=== PATIENT | female | born 1945 | race Caucasian/White ===

== ENCOUNTER → 2016-12-06 | Outpatient (CLI) | payer OTHER | LOC: RAD 12-02 01:51 | DX: Z12.31 Encounter for screening mammogram for malignant neoplasm of breast (principal) ==

== ENCOUNTER → 2018-06-26 | Outpatient (CLI) | payer OTHER | LOC: RAD 01:09 | DX: Z12.31 Encounter for screening mammogram for malignant neoplasm of breast (principal) ==

== ENCOUNTER → 2018-06-27 | Outpatient (CLI) | payer OTHER | LOC: RAD 13:53 | DX: R92.1 Mammographic calcification found on diagnostic imaging of breast (principal) ==

== ENCOUNTER 2019-11-27 20:35 | Inpatient (IN) | payer OTHER ==
[~2019-11-27] VITALS: Ht 167.6 cm; Wt 72.8 kg
[2019-11-27 20:36] VITALS: BP 98/58
[2019-11-27] MEDS ORDERED: DEPAKOTE ER500 M1 PO (20:51)
[2019-11-27] MEDS ORDERED: NORVASC 2.5 MG2.5 M1 PO (20:51)
[2019-11-27] MEDS ORDERED: CYMBALTA60 MG PO (20:53)
[2019-11-27] MEDS ORDERED: ARICEPT10 M1 PO (20:53)
[2019-11-27] MEDS ORDERED: FENOFIBRATE150 MG PO (20:54)
[2019-11-27] MEDS ORDERED: GLUCOSA-CHOND-1 EACH PO (20:55)
[2019-11-27] MEDS ORDERED: LEVOCARNITI100 MG/ML PO (20:56)
[2019-11-27] MEDS ORDERED: LISINOPRIL2.5 MG PO (20:57)
[2019-11-27] MEDS ORDERED: MELATONIN5 M4 PO (20:58)
[2019-11-27] MEDS ORDERED: METFORMIN HCL500 M3 PO (20:58)
[2019-11-27] MEDS ORDERED: FISH OIL 1,0001 EAC9 PO (20:59)
[2019-11-27] MEDS ORDERED: SUPER THERAVIT1 EACH PO (20:59)
[2019-11-27] MEDS ORDERED: RISPERDAL0.5 MG PO (21:00)
[2019-11-27] MEDS ORDERED: ROSUVASTATIN CA10 MG PO (21:01)
[2019-11-27] MEDS ORDERED: OLANZAPINE10 M1 IM (21:03)
[2019-11-27 21:07] LABS: ABSOLUTE NEUTROPHILS 4.9 thou/uL (1.4-8.2); EOSINOPHILS 1.9 % (0.0-3.0); HEMATOCRIT 37.9 % (37.0-47.0); HEMOGLOBIN 12.3 gm/dL (12.0-15.0); LYMPHOCYTES 25.6 % (24.0-44.0); MCH 27.2 pg (26.0-34.0); MCHC 32.5 g/dL (28.0-37.0); MCV 83.8 fL (80.0-100.0); MONOCYTES 7.1 % (1.0-8.0); PLATELET COUNT 310 thou/uL (150-400); POLYS 64.4 % (36.0-66.0); RBC 4.52 mil/uL (4.20-5.00); RDW 14.8 % (10.5-14.5); WBC 7.6 thou/uL (4.0-11.0)
[2019-11-27 21:16] LABS: CALCIUM 9.3 mg/dL (8.5-10.1); CREATININE 1.5 mg/dL (0.6-1.0)
[2019-11-27 21:23] LABS: ALBUMIN 3.4 g/dL (3.4-5.0); TOTAL BILIRUBIN 0.3 mg/dL (<0.1-1.0); TOTAL PROTEIN 6.9 g/dL (6.4-8.2)
[2019-11-27 21:54] LABS: URINE BILIRUBIN NEGATIVE (Negative); URINE BLOOD NEGATIVE (Negative); URINE CLARITY CLEAR; URINE COLOR YELLOW; URINE GLUCOSE-RANDOM* NEGATIVE (Negative); URINE KETONES TRACE (Negative); URINE LEUKOCYTES-REFLEX NEGATIVE (Negative); URINE NITRITE-REFLEX NEGATIVE (Negative); URINE PROTEIN (DIPSTICK) 2+ (Negative); URINE SPECIFIC GRAVITY >= 1.030 (1.005-1.035)
[2019-11-27] MEDS ORDERED: LOPERAMIDE2 MG PO (22:02)
[2019-11-27] MEDS ORDERED: ZYPREXA10 MG IM (22:06)
[2019-11-27 22:07] LABS: AMP/METHAMP Negative (Negative); BARBITURATES Negative (Negative); BENZODIAZEPINES Negative (Negative); COCAINE Negative (Negative); METHADONE Negative (Negative); OPIATES Negative (Negative); PCP Negative (Negative)
[2019-11-27 22:08] LABS: SQUAMOUS 0-3 Few /LPF (0-3)
[2019-11-27 22:09] LABS: BACTERIA-REFLEX 1-9 Few /HPF (None Seen); CASTS None Seen /LPF (None Seen); CRYSTALS None Seen /LPF (None Seen); URINE RBC None Seen /HPF (0-2); URINE WBC-REFLEX 0-5 Rare /HPF (0-5)
[2019-11-27 23:10] VITALS: BP 140/54
--- NOTE | 2019-11-28 00:40 | NUR ---
Patient arrived via gurney from [facility] ED with 2 daughters at side. Patient arrived to ED via EMS due to exit seeking behaviors, increased confusion and agitation from her [facility] apartment at [facility]. Patient was evaluated in ED by this nurse. Patient angry and agitated. Patient repeatedly demanding to go home. Patient alert and oriented to person only. While assessing current orientation, patient had a suspicious look on her face. Patient was given time to name current date, which she finally answered "I knew what it was this morning!". When asked current location, patient was quiet as if she was thinking then started to yell at her daughters "Are you going to help me or just let me look like an idiot?!" Patient denied pain or discomfort. Patient speaking loudly, verbally aggressive to daughters. States that her kids are just picking at her, pointing out all her faults, "they have faults too, ya know". Patient having disorganized speech, tangential thoughts. Blunted affect. Daughters stepped out of patient room at one point to speak with this nurse when patient attempted to leave room independently. Patient required re-direction to be assisted back to her room. Family reports that someone has been staying 1:1 with her during all hours to avoid her eloping at current apartment. Patient was provided IM Geodon for agitation while in ED. Patient denied SI/HI/AH/VH. Patient was able to go to bed and fall asleep without difficulty once arriving to the unit. Medication orders obtained from Dr. Drummond and Axel, ROTARY DRUM TANNER. Due to current GFR being 34, order obtained to d/c Metformin and start low dose insulin scale and ACHS blood sugars. Full code. Carb Controlled diet. Patient was living at home with her early October 2019. Patient was physically aggressive toward daughter, combative, throwing things. Increased confusion at night, wandering, stating her does not love her anymore. When asked about her daughters, patient stating "I'm sure they wish they weren't mine". Due to behaviors early October 2019, patient was sent to [facility] where she was admitted for 3.5 weeks and started on Depakote. Family states that it was not a psychiatric visit and was only medical. Family reports that patient was not able to reach a therapeutic level of Depkote due to having an increased Ammonia level. Patient has been evaluated by a neurologist at which family is not satisfied with. Reports that patient has not yet been "worked up" to obtain a diagnosis of Major Neurocognitive Disorder and was only diagnosed with Mild Neurocognitive Disorder Dementia "a while back". Family hopes for patient behaviors to be controlled and she can return back to [facility] apartment or even home with . Appears that Risperdal was started 11/26/19. Verbal consent obtained from [place], Sony Greene, over the phone. Visiting hours and security code provided. Also requested for him to bring 2 outfits for patient to wear.
--- NOTE | 2019-11-28 08:16 | EKG ---
[facility] [place] [address] ELECTROCARDIOGRAM REPORT Name: STEPHANY BERNAL Room #: [facility]- ADM IN M.R.#: [id number] Admission: 11/27/19 Attend Phys: Marco Drummond DO Discharge: Date of : 41 Report #: [id number] THIS REPORT FOR: cc: Steve Zuniga MD, Nelopher MD Couchonnal,Jose Salguero MD ~ THIS REPORT FOR: //name// [facility] ED Test Date: 2019-11-27 Test Time: 21:07:05 Pat Name: STEPHANY BERNAL Department: Room: [facility] Gender: F Web Manager: NO : 1945 Requested By: Shanna Belcher Order Number: [id number] MD: Jose Goldman Measurements Intervals Stanton Rate: 83 P: 42 WI: 139 QRS: -29 QRSD: 85 T: 45 QT: 382 QTc: 449 Interpretive Statements Pacemaker spikes or artifacts Sinus rhythm Borderline left axis deviation Abnormal R-wave progression, late transition No previous ECG available for comparison Electronically Signed On 11-28-2019 8:15:08 CDT by Jose Goldman [email or web address] <ELECTRONICALLY SIGNED> By: Jose Goldman MD 11/28/19814 06 06 Jose Goldman MD /EPI
[2019-11-28 13:01] VITALS: BP 137/68
--- NOTE | 2019-11-28 13:09 | NUR ---
ASSUMED CARE AT 0700 THIS MORNING. PT. HAS REMAINED PLEASANT WITH TALKING TO STAFF. WHEN 2 OF HER DAUGHTERS WERE HERE AT 1045, SHE WAS VERY ANGRY WITH THEM TELLING THEM TO LEAVE AND NOT COME BACK. SHE WAS IRITABLE AND ANGRY WITH HER CHILDREN. AFTER THEY LEFT, SHE RETURNED TO HER PLEASANT NATURE. SHE TRIED TO TELL DR. SMALL SHE NEEDED TO LEAVE HERE TOMORROW. WHEN SHE WAS INFORMED THIS MAY NOT OCCUR, SHE LOOKED VERY SAD AND STATED, "DON'T SAY THAT!" SHE HAS BEEN AT THE OFFICE WINDOW FREQUENTLY WANTING THINGS. SHE DID CALL HER THAT IS HAVING EYE SURGERY THIS MORNING BEFORE HIS SURGERY. SHE SEEMED CONTENT THAT SHE COULD TALK TO HIM AT THAT TIME. SHE TOOK HER MEDICATIONS WITHOUT DIFFICULTY.
[2019-11-28 13:14] VITALS: BP 137/68
--- NOTE | 2019-11-28 13:25 | NUR ---
Sw called and spoke with pt's spouse/DPOA Sony and he reported that pt has inccreased agitation and anggression. ALEXANDRE set up family meeting for 11/29 at 1145 am. Sw completed intake assessment and TP. SW then met wiht pt and she was weepy because her spouse was having eye surgery and couldnt be there. SW attempted to explore her insight in why she was inpt psych, and she think it's because she gets angry at her spouse - but he is always " pushing my buttons". Sw asked if it had anything to do wiht her memory, and she stated that her says she forgets things , " but i know i don't and it's crazy making.". ALEXANDRE encoaurged pt tp particpate in groups.
[2019-11-28 19:39] VITALS: BP 127/60
[2019-11-28 21:40] VITALS: BP 127/60
--- NOTE | 2019-11-29 04:48 | NUR ---
PATIENT HAS BEEN UP PACING THE HALLS EARLY IN THE EVENING AND THEN STANDING OUTSIDE THE NURSES STATION ASKING REPETITIVE QUESTIONS OVER AND OVER AGAIN IF THE FIRST TIME ASKED. SHE ASKED LATE IN EVENING FOR A CELL PHONE TO CALL HER . WHEN TOLD IT WAS LATE AND SHE WOULD HAVE TO WAIT TILL MORNING. SHE WOULD SAY OK, THAT'S FINE AND WALK ON TO THE NEXT NURSE, THE NEXT PATIENT AND BACK TO THE ORIGINAL NURSE. SHE ALSO DID THIS WITH THE QUESTION OF "I AM GOING HOME IN THE MORNING, ARENT I?" WHEN GIVEN AN ANSWER THAT THE DR WOULD NEED TO TALK WITH HER IN THE MORNING BEFORE HE COULD D/C HER IF HE PLANNED ON HER GOING HOME BUT THIS NURSE HAS NOT SEEN WHAT HIS PLAN IS. SHE CONTINUED TO ASK OTHERS AND AGITATION INCREASED. PATIENT REFUSED TO TAKE HER HS MEDS. SHE TOLD ONE FEMALE UTILITY WORKER PRODUCTION THAT SHE LIKED HER "BOOBS". SHE BECAME BELIGERANT AND LOUD STATING SHE DIDN'T NEED TO BE HERE AND SHE WAS GOING TO [facility] AND THE STAFF IF WE DIDN'T LET HER GO HOME IN THE MORNING. CALLED REYNALDO MCCRACKEN NP AND ORDER GIVEN FOR GEODON 10MG IM ONE TIME. CALLED BECAUSE SHE WAS PACING, ARGUING, SWINGING ARMS, AND THREATNING TO HIT. SHE WAS PARANOID AND DIDN'T WANT STAFF FOLLOWING HER TO HER ROOM TO GIVE THE SHOT. SHE THOUGHT PEOPLE WERE TALKING BEHIND HER BACK. ASSISTED PATIENT WITH 2 NURSE STAFF WALKING IN FRONT OF HER TO HER ROOM. SHE DID NOT WANT MALE NURSE OR BUCKLE STAPLER IN ROOM FOR SHOT BUT ALLOWED FEMALE OFFICER TO BE PRESENT. SHE FINALLY CALMED FOR THE SHOT SAYING SHE WOULD ONLY TAKE THE SHOT FROM ME BECAUSE SHE TRUSTS ME. SHOT GIVEN IN RIGHT HIP. PATIENT WENT TO BED WITHIN HALF AN HOUR OF PACING IN ROOM. PATIENT HAS BEEN SLEEPING SINCE 2300. CONTINUED ROUNDING TO ASSESS HER SAFETY AND PHYSICAL ASSESSMENT. CONTINUE TO MONITOR. BED IN LOW POSITION.
[2019-11-29 08:59] VITALS: BP 102/49; BP 142/65
[2019-11-29 13:48] VITALS: BP 142/65
--- NOTE | 2019-11-29 14:10 | NUR ---
ASSUMED CARE AT 0700 THIS MORNING. PT. UP, DRESSED AND ON THE UNIT FOR MEALS. TOOK HER MORNING MEDICATIONS WITHOUT DIFFICULTIES. HAS BEEN INTERACTING WITH [employer]. ATTENDED GROUPS.
[2019-11-29 19:51] VITALS: BP 149/67
--- NOTE | 2019-11-30 04:04 | NUR ---
Assumed care of pt @ 1900. Pt calm, cooperative et pleasant this shift. Took medications whole without difficulty. Ambulates ad lizz with steady gait. Socialized with peers in dayroom until HS. VSWNL. Health assessment with no abnormalities noted at present time. Denies SI/HI at present time. Currently resting in bed with eyes closed. Will continue to monitor per protocol.
[2019-11-30 07:15] VITALS: BP 153/70
[2019-11-30 11:58] VITALS: BP 153/70
--- NOTE | 2019-11-30 14:44 | NUR ---
Todd met with pt's 5 daughters and spouse in what ended up being a 2 hour family meeting. Sw provided support and education regarding placements, dementia, SBH and family concerns. Sw provided guidance about AL memory care and the need for structure and safety. 4 daughters were open to suggestions but the eldest daughter was hostile and rude to SW and her sisters. Pt was not inlcuded in the meeting as this would not have been therapeutic. Sw reinforced the severity of the pt'sbehaviors and cognitive impairment and that she would be having neuropsych testing next week. TODD asked for 3 placement options to be provided by Tuesday so the referrals can be submitted. Family was grateful for the time and effort the [facility] was providing their mom and family. TODD relayed this to Dr Sigala and provided the alternate DPOA Natasha Chinchilla's phone number [phone] as the DPOA spouse is ADAIR.
--- NOTE | 2019-11-30 15:57 | NUR ---
1545 RESUMMED CARE FROM OVERNIGHT SHIFT, PATIENT IN DAY ROOM QUIET CALM. PATIENT ATE BREAKFAST TOOK MEDICATION WITHOUT INCIDENCE, PATIENT DENIES AI/HI/AH/VH AT PRESENT. PATIENT LUNGS CLEAR ABDOMEN SOFT ROUND BOWEL SOUNDS PRESENT 4 QUADRANTS. DURING VISITING HOURS PATIENT ASKED DAUGHTER TO LEAVE, CUSSED OUT . AROUND 1600 PATIENT COMES TO NURSES STATION TO ASK IF SOMEONE WAS VISITING HER AGAIN TODAY. I EXPLAINED TO PATIENT YOU MAY NOT HAVE VISITORS DUE TO WHAT SHE DID IN EARLIER VISIT. PATIENT STATES SHE IS ANXIOUS AND NOW WANTS TO GO HOME. WILL CONTINUE TO MONITOR PATIENT FOR SAFETY AND BEHAVIORS.
[2019-11-30 20:23] VITALS: BP 122/63
--- NOTE | 2019-12-01 04:40 | NUR ---
Assumed care of pt @ 1900. Pt calm et cooperative with pleasant demeanor this shift. Took medications whole without difficulty. Ambulates the halls ad lizz with steady gait. Socialized with peers et staff in dayroom until HS. Denies SI/HI at present time. No behaviors noted. VSWNL. Health assessment with no abnormalities noted at present time. Currently resting in bed with eyes closed. Will continue to monitor per protocol.
[2019-12-01 08:27] VITALS: BP 128/55
--- NOTE | 2019-12-01 17:54 | NUR ---
AAOX3. CONTINUALLY WANTS TO LEAVE AND VOICES CONCERN ABOUT HER WANTING TO LEAVE HER. SHE GETS TEARY AT TIMES AND OTHER TIMES ANGRY THAT SHE IS HERE. AMBULATES WITH SLOW STEADY GAIT. TALKS ABOUT CHILDREN BUT HAS TROBLE REMEMBERING THIER NAMES AND IF THEY HAVE CHILDREN OF THEIR OWN. GOOD APPETITE FOR MEALS. ATE ALL MEALS IN DINNIN ROOM AND ATTENDED GROUPS.
[2019-12-01 20:38] VITALS: BP 100/58
--- NOTE | 2019-12-01 22:48 | NUR ---
Assumed care of patient this pm shift. Patient in good spirits sitting in the mileu watching tv and talking with staff and peers. Patient is dressed appropriately with clean clothes. Patient is calm and cooperative. Patient denies hi/si. Patient takes medications whole. Patient ambulates without assistance. Patients assessment shows clear breath sounds, active bowel sounds, and s1 s2 heard with auscultation. Patient is in bed sleeping now. We will continue to monitor.
[2019-12-02 08:18] VITALS: BP 175/84
[2019-12-02 10:35] VITALS: BP 175/84
--- NOTE | 2019-12-02 11:23 | NUR ---
1040 RESUMMED CARE FROM OVERNIGHT SHIFT THIS AM, PATIENT SITTING IN DAY ROOM WAITING FOR BREAKFAST. PATIENT CALM COOERATIVE LUNGS CLEAR ABDOMEN SOFT AND ROUND BOWEL SOUNDS PRESENT. PATIENTS BS 143 AND SHE RECEIVED 3 UNITS OF INSULIN. PATIENT DENIES SI/HI/AH/VH AT PRESENT HER AFFECT IS BRIGHTER. PATIENT PARTICIPATED IN GROUPS WILL CONTINUE TO MONITOR PATIENT FOR SAFETY AND BEHAVIORS.
[2019-12-02 13:53] LABS: URINE BILIRUBIN NEGATIVE (Negative); URINE BLOOD NEGATIVE (Negative); URINE CLARITY CLEAR; URINE COLOR YELLOW; URINE GLUCOSE-RANDOM* NEGATIVE (Negative); URINE KETONES TRACE (Negative); URINE LEUKOCYTES NEGATIVE (Negative); URINE NITRITE NEGATIVE (Negative); URINE PROTEIN (DIPSTICK) 2+ (Negative); URINE SPECIFIC GRAVITY >= 1.030 (1.005-1.035); URINE UROBILINOGEN 0.2 E.U./dl (0.2-1.0)
[2019-12-02 14:00] LABS: CASTS None Seen /LPF (None Seen); SQUAMOUS 0-3 Few /LPF (0-3)
[2019-12-02 14:01] LABS: BACTERIA 1-9 Few /HPF (None Seen); CRYSTALS None Seen /LPF (None Seen); URINE RBC None Seen /HPF (0-2); URINE WBC 0-5 Rare /HPF (0-5)
[2019-12-02 19:27] VITALS: BP 127/77
--- NOTE | 2019-12-02 23:48 | NUR ---
Assumed care of patient this pm shift. Patient in good spirits. Patient is calm and cooperative. Patient states that she is looking forward to going home. Patient denies pain. Patient denies hi/si. Patient ambulatory. Patient is dressed neatly. Patient took medications whole this evening after rn reviewed what each medication was for. Patients assessment shows clear breath sounds, active bowel sounds, and s1 s2 heard with auscultation. We will continue to monitor.
[2019-12-03 08:43] VITALS: BP 112/47
--- NOTE | 2019-12-03 09:18 | NUR ---
SW completed chart review and pt is making small gains but is clearly demented . pt is pending neuro testing . Pt's family would like her back in the AL but are still looking for a AL or LTC with memory care. They are expected to provide at least referrals to send today.
[2019-12-03 10:15] VITALS: BP 112/47
--- NOTE | 2019-12-03 12:24 | NUR ---
1210 RESUMMED CARE FROM OVERNIGHT SHIFT THIS AM, PATIENT UP IN DAYROOM CONVERSING WITH OTHER FEMALE PATIENTS. PATIENT ATE BREAKFAST TOOK MEDICATION WITHOUT INCIDENCE. PATIENT DENIES SI/HI/AH/VH AT PRESENT, PATIENTS ABDOMEN SOFT ROUND BOWEL SOUNDS PRESENT. LUNGS CLEAR PATIENT CALM COOPERATIVE DID TALK TO ME ABOUT HER NOT DOING THINGS WITH HER. SHE STATES HER DAUGHTER IS A GOOD RESOURCE FOR HER. PATIENT WANTS TO WORK ON COPING AND GETTING INVOLVED WITH DOING MORE WITH HER LIFE. WILL CONTINUE TO MONITOR PATIENT FOR SAFETY AND BEHAVIORS.
[2019-12-03 19:25] VITALS: BP 133/55
--- NOTE | 2019-12-04 03:09 | NUR ---
Assumed care of pt @ 1900. Pt calm et cooperative this shift. Pt confused as to where her room is as she was moved today. Pt continue to ask staff where her room is after being told et shown several times throughout the shift. Took medications whole without difficulty. Ambulates the halls ad lizz with steady gait. VSWNL. Health assessment with no abnormalities noted at present time. Socialized with peers in dayrrom until HS. Currently resting in bed with eyes closed. Will continue to monitor per protocol.
[2019-12-04 07:48] VITALS: BP 149/59
--- NOTE | 2019-12-04 10:16 | NUR ---
ANXIOUS FACIAL EXPRESSION WHEN CONVERSING WITH THIS NURSE REGARDING TREATMENT AND HOSPITAL STAY-STATES SHE DOES NOT KNOW WHY SHE IS HERE,WHAT FAMILY MEMBERS ARE "RESPONSIBLE FOR PUTTING ME HERE" BECOMES INCREASINGLY ANXIOUS WHEN SPEAKING ABOUT THIS AND EXPRESSES FEELING LIKE FAMILY IS "OUT TO GET ME I GUESS-I THOUGHT THEY LOVED ME" GAIT STEADY WITHOUT ASSISITVE DEVICES. DENIES SI/SH/HI
--- NOTE | 2019-12-04 11:50 | NUR ---
ALEXANDRE spoke at length with pt's daughter Natasha about d/c plans, she reported that they are not able to look at any AL due to COvid 19 and do not want ot send her somehwere they have not seen. SW suggested that they pick a [place] memory care for placement that might be temporary until the ban on visits is lifted, as staying in the [facility] is non therapuetic for long periods of time. Natasha is still hesitant about picking another pale for this pt, and still wnats [facility] to work. SW advised her that was not as safe as Memory care [place]. Sw offered to send updates to [facility] and let them decide if they can take her back as she is. Natasha stated that she will call this pm or tomorrow am witha decision or placees to send referrals to.
--- NOTE | 2019-12-04 16:05 | NUR ---
ALEXANDRE met with Dr Sigala and is was decided that pt will d/c back to her AL. Alexandre then called Natasha and reported this. Pt will likely d/c TR Komal Kaur stated that Dr Zuniga will be managing this pts' medications . ALEXANDRE requested that Natasha make an appt wiht a psych Dr for later . Alexandre then called [facility] and spoke with nursing to confirm the d/c and faxed updates. family is satisfied with this outcome.
[2019-12-04 19:30] VITALS: BP 142/63
[2019-12-04 22:23] VITALS: BP 142/63
--- NOTE | 2019-12-05 05:59 | NUR ---
PATIENT WAS UP IN DINING ROOM TILL BEDTIME VISITING WITH ANOTHER FEMALE PT. SHE HAS BEEN CALM, REDIRECTABLE, AND REMEMBERING INSTRUCTIONS LONGER BEFORE ASKING AGAIN. SHE DID ASK APPROPRIATE QUESTIONS REGARDING HER MEDS AND INSULIN AT HS AND WANTED TO KNOW IF SHE WOULD HAVE HELP WITH WHAT TO TAKE WHEN SHE IS D/C'D. PATIENT WAS INDEPENDENT WITH SELF CARES AND WENT TO BED ON HER OWN WITHOUT DIRECTION OR HELP. DENIES PAIN. SLEPT THRU NIGHT.
[2019-12-05 08:54] VITALS: BP 136/55
[2019-12-05 11:51] VITALS: BP 136/55
--- NOTE | 2019-12-05 11:56 | NUR ---
PATIENT HAS BEEN UP AND OUT ON THE UNIT, LIKES TO WALK AROUND THE UNIT. PATIENT IS ALERT, FORGETFUL, AND INTERMITTENT CONFUSION NOTED, SHE REPEATS QUESTIONS. PATIENT TOOK ALL MORNING MEDICATIONS WHOLE WITHOUT DIFFICULTY. PATIENT IS EATING MEALS, AND DRINKING FLUID WELL. SHE DENIES SUICIDAL/HOMICIDAL IDEATION. PATIENT DENIES DEPRESSION/ANXIETY. MOOD IS ANXIOUS, AND WORRIED, WANTS TO GO HOME. AFFECT IS APPROPRIATE "I JUST WANT TO GO HOME I HAVEN'T SEEN MY IN A WHILE I DON'T EVEN KNOW IF I AM STILL MARRID TO HIM". PATIENT'S DAUGHTER CALLED AND WANTS STAFF TO REITERATE TO PATIENT THAT "SHE WILL BE DISCHARGING TO [facility], AND NOT GOING HOME, BECAUSE SHE THINKS SHE IS GOING HOME, HOME" NO AGITATION OR AGGRESSIVE BEHAVIOR NOTED. WILL CONTINUE TO REDIRECT, AND MONITOR FOR SAFETY.
--- NOTE | 2019-12-05 12:27 | NUR ---
Todd spoke with Natasha and she reproted that the neuropsych testing revealed a recomendation for AL and memeory care with 11/04 supervision. Now family confused and would like to speak with Dr Sigala. Todd sent this message to Dr Sigala. TODD is still encouarging memory care with medicaid and the family would like the referral sent to [facility]. Todd also provided inforamtion regarding d/c plans.
--- NOTE | 2019-12-05 14:37 | NUR ---
NANNETTE received an email requesting that the referal packet be sent to [facility] again, and to add the meds list. They also requested d/c orders and nannette educated them that these can be sent a few hours before d/c. Nannette sent the packet with confirmation of reciept to [phone] and [phone]. [facility] requested that this d/c happen on Tuesday so they can be ready for her.
--- NOTE | 2019-12-05 15:45 | NUR ---
Date of Admission: 11/27/19 Date of Activity Therapy Assessment: 11/30/19 Activity Goal: Increase engagement Initial Goal: 2 Group activities/day Weekly progress towards goal: Achieving current goals Group participation level: Full Behaviors observed: Patient participating in all groups. Periods of confusion observed- particularly in the afternoon. Patient is tearful at times, expressing doubt that her family loves her. Plan: No change towards goal
[2019-12-05 19:06] VITALS: BP 148/64
--- NOTE | 2019-12-05 21:18 | NUR ---
Assumed care on 12/04 @ 1900, up in day room sitting on sofa watching tv and socializing with peers. Cooperated with assessment and took meds whole. fsbs 179 @ 2100, 3 u insulin provided. Will continue to monitor.
[2019-12-06 00:22] VITALS: BP 148/64
--- NOTE | 2019-12-06 06:02 | NUR ---
slept 8.2 hours overnight
--- NOTE | 2019-12-06 09:18 | NUR ---
Assumed care of pt at 0700. Pt has a positive affect and is in a pleasant mood. Pt up, showered and seated in the dining for breakfast. Pt denies any pain or discomfort; also denies SI/HI and denies AH/VH. Pt given and tolerated medications without difficulty. Pts 7am blood sugar - 108 (no insulin given). Pts goal for the day is to find out information about discharge. Pt participated in group activities and interacts well with others. Will continue to monitor.
[2019-12-06 09:22] VITALS: BP 115/33
[2019-12-06 10:48] VITALS: BP 125/62
--- NOTE | 2019-12-06 12:08 | NUR ---
Sw emailed pt's [facility] Nuris and she stated that they will picking table worker this pt at 1pm on 12/06. They understand they will go to the senior outside sales representative parking and wait for the nurse to bring the pt. nursing will provide a tele report prior to d/c.
--- NOTE | 2019-12-06 14:10 | NUR ---
Nannette recieved a call from Meseret Torres at [facility] who had some concerns about this pt " still and having behaviors", SW attempted to explain and validate the cocnerns but also reported concerns that this was brought to our attention the day before d/c. NANNETTE then called Dr Sigala who reinforced that this pt is approapriate for AL, and is confident in this d/c. NANNETTE then called Meseret back and reported this to her. SHe then asked for the d/c meds list today and nannette had explain again that thsi is only provided day of d/c but she could use the meds list that was sent yesterday per thier request. Nannette will also set up HH with [facility] so they can grain picker servcice with this pt again.
[2019-12-06 19:50] VITALS: BP 129/51
--- NOTE | 2019-12-07 01:17 | NUR ---
Assumed care on 12/06/19 @ 1900, ambulating ad lizz from day room to her bedroom. A&O x 3 to person, time and place. Pleasant affect, reports looking forward to leaving the hospital. Reports pain in the upper right back, however denies need for tylenol for the pain. Rates pain at 4/10. Asks questions regarding discharge and her clothes. Clothes laundried and returned to bedroom after she went to bed. Cooperated with assessment, hrrr, lungs cta, abd normoactive x 4q soft abdomen. Reports bm on 12/04. Took meds whole with water. Fsbs 162 @ HS, 3 units of insulin provided in the left delt. Chose fruit cup for evening snack over ice cream. Sleeping at this time, eyes closed, respirations even and unlabored. Bed in low position, will continue to monitor for patient safety.
[2019-12-07 04:50] VITALS: BP 129/51
--- NOTE | 2019-12-07 06:07 | NUR ---
slept 7.4 hours overnight
[2019-12-07 07:15] VITALS: BP 135/61
[2019-12-07 08:48] VITALS: BP 135/61
[2019-12-07] MEDS ORDERED: RISPERDAL 1 MG T1 MG PO (09:14)
[2019-12-07] MEDS ORDERED: DEPAKOTE ER250 MG PO (09:14)
[2019-12-07] MEDS ORDERED: TRADJENTA5 MG PO (09:15)
--- NOTE | 2019-12-07 11:49 | NUR ---
Todd made packet and left on chart. Todd faxed d/x orders and summary to [facility] and left this packet and fax confimraion on chart. Todd also sent orders to [facility] .
--- NOTE | 2019-12-07 13:22 | NUR ---
PATIENT DISCHARGED AND TRANSPORTED TO [facility] ASSISTED LIVING BY DAUGHTERS. ALL BELONGINGS REVIEWED - PAPERWORK REVIEWED WITH DAUGHTER GRIS BASHIR AND APPROPRIATE SIGNATURES OBTAINED AND VERBALLY ACCEPTED VIA PHONE. PRESCRIPTIONS SENT WITH DAUGHTERS TO GIVE TO FACILITY WHEN ARRIVING. PATIENT CALM AND PLEASANT - SAD ABOUT NOT GOING HOME BUT ACCEPTING OF SITUATION. BLOOD SUGAR PRIOR TO LUNCH WAS 160 AND 3 UNITS OF INSULIN ADMINISTERED PRIOR TO LEAVING.
== END 2019-12-07 13:27 | DRG 884 ==
LOC: ER 20:35 → SBH 22:35 → EROBS 22:35 → SBH 22:56
PROVIDERS: Psychiatry & Neurology Psychiatry; Student in an Organized Health Care Education/Training Program; ADMIT Psychiatry & Neurology Psychiatry
DX: F03.91 Unspecified dementia, unspecified severity, with behavioral disturbance (principal); F01.51 Vascular dementia, unspecified severity, with behavioral disturbance; N17.9 Acute kidney failure, unspecified; F02.80 Dementia in other diseases classified elsewhere, unspecified severity, without behavioral disturbance, psychotic disturbance, mood disturbance, and anxiety; E11.9 Type 2 diabetes mellitus without complications; I10 Essential (primary) hypertension; F32.9 Major depressive disorder, single episode, unspecified; F41.9 Anxiety disorder, unspecified
CPT/HCPCS: 10880

== ENCOUNTER 2021-10-25 13:26 | Inpatient (IN) | payer OTHER, MEDICAID ==
[~2021-10-25] VITALS: Ht 170.2 cm; Wt 54.4 kg
--- NOTE | ~2021-10-25 | EMS ---
[address] [address] EMS Patient Care Report Name: STEPHANY BERNAL Room #: 351-P ADM IN M.R.#: [id number] Admission: 10/25/21 Attend Phys: Tony Escobedo MD Discharge: Date of : 41 Report #: [id number] THIS REPORT FOR: //name// Report Transmitted: 10/26/2021 12:04 EMS Care Summary [facility] MED-ACT Incident [id number] @ 10/25/2021 12:37 Incident Location [address] [place] [address] Patient STEPHANY BERNAL Female, 76 Years 1945 Patient Address [address] [place] [address] Patient History Dementia,Diabetes, Patient Allergies Erythromycin,Other drug allergy, Patient Medications Prednisone, Fenofibrate, Risperidone, Metformin, Lactulose, Furosemide, Lisinopril, Divalproex Sodium, Donepezil, Trazodone, Chief Complaint L hip pain after fall Disposition Transported No Lights/[place] Dispatch Reason Falls Transported To [facility] Narrative Pt is found supine on a couch with FD at side. Pt is in no acute distress. Pt [address] [address] EMS Patient Care Report Name: STEPHANY BERNAL Room #: 351-P ADM IN Iqra#: [id number] Admission: 10/25/21 Attend Phys: Tony Escobedo MD Discharge: Date of : 41 Report #: [id number] c/o isolated L hip pain that increases with movement/palpation, however, pt is moving her L hip around freely. FD reports that nursing staff states pt was found on the floor for an unknown amount of time then helped back into bed. Nursing staff states pts fall was unwitnessed. Nursing staff states pt has a hx of dementia and states pt is normally confused - nursing staff states pts mentation of confusion is normal for pt. Pt states her only complaint is isolated L hip pain; however, pt is able to move her L leg freely on EMS arrival. Pt states she has no head/neck/back pain, numbness/tingling, weakness. Due to dementia and normal confusion, no further HPI could be obtained. Tx= report from FD, VS, IV, Pt then starts to hold both of her hips saying that she is in pain, but is able to move both legs freely. 50mcg fentanyl-pt no longer is c/o L hip pain, but states she has some L hip pain. Pt is also able to move her leg freely. Pt moved from couch to cot via sheet draw and secured without incident. En route= VS, EKG-NSR, hospital contact with info only, pt no longer c/o hip pain during transport. Pt becomes sleepy but is easily aroused Initial Vitals @PTAP: 80,BP: 111/64,Pain: 8/10,SpO2: 100, @13:11P: 73,R: 16,BP: 120/76,GCS: 14,SpO2: 100,Revised Trauma: 12, @13:04P: 74,R: 16,GCS: 14,SpO2: 99, @13:14P: 89,R: 16,BP: 107/66,GCS: 14,SpO2: 100,Revised Trauma: 12, @13:04P: 73,R: 16,BP: 141/70,GCS: 14,Temp: 98F,SpO2: 100,Revised Trauma: 12, Impression Injury of Hip Procedures @12:55 Surgical Mask on Patient Response: Unchanged @12:51 IV Therapy - Saline Lock 0cc (20 ga) Site: Forearm-Right Response: UnchangedFailed @12:54 IV Therapy - Saline Lock 10cc (22 ga) Site: Forearm-Right Response: UnchangedSucceeded @12:56 Fentanyl - 50 Micrograms (mcg) - Intravenous (IV) Response: Improved Timeline FILLING OPERATOR,BP: 111/64 M,PULSE: 80,RR: R,SPO2: 100 Ox,ETCO2: ,BG: ,PAIN: 8,GCS: , 12:36,Call Received 12:36,Psap Call 12:37,Dispatched 12:37,En Route 12:45,On Scene 12:49,At Patient 12:51,IV Therapy - Saline Lock 0cc 20 ga Site: Forearm-Right,Response: [address] [address] EMS Patient Care Report Name: STEPHANY BERNAL Room #: 351-P ADM IN M.R.#: [id number] Admission: 10/25/21 Attend Phys: Tony Escobedo MD Discharge: Date of : 41 Report #: [id number] UnchangedFailed, 12:54,IV Therapy - Saline Lock 10cc 22 ga Site: Forearm-Right,Response: UnchangedSucceeded, 12:55,Surgical Mask on Patient,Response: Unchanged 12:56,Fentanyl - 50 Micrograms (mcg) - Intravenous (IV),Response: Improved 13:04,BP: 141/70 M,PULSE: 73,RR: 16 R,SPO2: 100 Ox,ETCO2: ,BG: ,PAIN: ,GCS: 14, 13:04,BP: / M,PULSE: 74,RR: 16 R,SPO2: 99 Ox,ETCO2: ,BG: ,PAIN: ,GCS: 14, 13:06,Depart Scene 13:11,BP: 120/76 M,PULSE: 73,RR: 16 R,SPO2: 100 Ox,ETCO2: ,BG: ,PAIN: ,GCS: 14, 13:14,BP: 107/66 M,PULSE: 89,RR: 16 R,SPO2: 100 Ox,ETCO2: ,BG: ,PAIN: ,GCS: 14, 13:24,At Destination 13:34,Transfer Patient 13:41,Call Closed Disclaimer v1.1 Copyright 2021 [employer] This EMS Care Summary contains data elements from the applicable legal record (which may be displayed differently). It is designed to provide pertinent information for the following purposes: continuity of care, clinical quality, and state data reporting. The complete legal record is available to ED staff and administrators of the receiving hospital in [employer]'s Patient Tracker. All data is provided "as is."
--- NOTE | ~2021-10-25 | EMS ---
[address] [address] EMS Patient Care Report Name: STEPHANY BERNAL Room #: REG ALLA Escalona#: [id number] Admission: 10/25/21 Attend Phys: Discharge: Date of : 41 Report #: [id number] THIS REPORT FOR: //name// Report Transmitted: 10/25/2021 13:05 EMS Care Summary [facility] MED-ACT Incident [id number] @ 10/25/2021 12:37 Incident Location [address] [place] [address] Patient STEPHANY BERNAL Female, 76 Years 1945 Patient Address [address] [place] [address] Patient History Dementia,Diabetes, Patient Allergies Erythromycin,Other drug allergy, Patient Medications Prednisone, Fenofibrate, Risperidone, Metformin, Lactulose, Furosemide, Lisinopril, Divalproex Sodium, Donepezil, Trazodone, Chief Complaint L hip pain after fall Disposition Transported No Lights/[place] Dispatch Reason Falls Transported To [facility] Narrative Pt is found supine on a couch with FD at side. Pt is in no acute distress. Pt [address] [address] EMS Patient Care Report Name: STEPHANY BERNAL Room #: BHARAT Escalona#: [id number] Admission: 10/25/21 Attend Phys: Discharge: Date of : 41 Report #: [id number] c/o isolated L hip pain that increases with movement/palpation, however, pt is moving her L hip around freely. FD reports that nursing staff states pt was found on the floor for an unknown amount of time then helped back into bed. Nursing staff states pts fall was unwitnessed. Nursing staff states pt has a hx of dementia and states pt is normally confused - nursing staff states pts mentation of confusion is normal for pt. Pt states her only complaint is isolated L hip pain; however, pt is able to move her L leg freely on EMS arrival. Pt states she has no head/neck/back pain, numbness/tingling, weakness. Due to dementia and normal confusion, no further HPI could be obtained. Tx= report from FD, VS, IV, Pt then starts to hold both of her hips saying that she is in pain, but is able to move both legs freely. 50mcg fentanyl-pt no longer is c/o L hip pain, but states she has some L hip pain. Pt is also able to move her leg freely. Pt moved from couch to cot via sheet draw and secured without incident. En route= VS, EKG-NSR, hospital contact with info only, pt no longer c/o hip pain during transport. Pt becomes sleepy but is easily aroused Initial Vitals @PTAP: 80,BP: 111/64,Pain: 8/10,SpO2: 100, @13:11P: 73,R: 16,BP: 120/76,GCS: 14,SpO2: 100,Revised Trauma: 12, @13:04P: 74,R: 16,GCS: 14,SpO2: 99, @13:14P: 89,R: 16,BP: 107/66,GCS: 14,SpO2: 100,Revised Trauma: 12, @13:04P: 73,R: 16,BP: 141/70,GCS: 14,Temp: 98F,SpO2: 100,Revised Trauma: 12, Impression Injury of Hip Procedures @12:55 Surgical Mask on Patient Response: Unchanged @12:51 IV Therapy - Saline Lock 0cc (20 ga) Site: Forearm-Right Response: UnchangedFailed @12:54 IV Therapy - Saline Lock 10cc (22 ga) Site: Forearm-Right Response: UnchangedSucceeded @12:56 Fentanyl - 50 Micrograms (mcg) - Intravenous (IV) Response: Improved Timeline BUSINESS BANKING REPRESENTATIVE,BP: 111/64 M,PULSE: 80,RR: R,SPO2: 100 Ox,ETCO2: ,BG: ,PAIN: 8,GCS: , 12:36,Call Received 12:36,Psap Call 12:37,Dispatched 12:37,En Route 12:45,On Scene 12:49,At Patient 12:51,IV Therapy - Saline Lock 0cc 20 ga Site: Forearm-Right,Response: [facility] [address] [place] [address] EMS Patient Care Report Name: STEPHANY BERNAL Room #: REG Iqra#: [id number] Admission: 10/25/21 Attend Phys: Discharge: Date of : 41 Report #: [id number] UnchangedFailed, 12:54,IV Therapy - Saline Lock 10cc 22 ga Site: Forearm-Right,Response: UnchangedSucceeded, 12:55,Surgical Mask on Patient,Response: Unchanged 12:56,Fentanyl - 50 Micrograms (mcg) - Intravenous (IV),Response: Improved 13:04,BP: 141/70 M,PULSE: 73,RR: 16 R,SPO2: 100 Ox,ETCO2: ,BG: ,PAIN: ,GCS: 14, 13:04,BP: / M,PULSE: 74,RR: 16 R,SPO2: 99 Ox,ETCO2: ,BG: ,PAIN: ,GCS: 14, 13:06,Depart Scene 13:11,BP: 120/76 M,PULSE: 73,RR: 16 R,SPO2: 100 Ox,ETCO2: ,BG: ,PAIN: ,GCS: 14, 13:14,BP: 107/66 M,PULSE: 89,RR: 16 R,SPO2: 100 Ox,ETCO2: ,BG: ,PAIN: ,GCS: 14, 13:24,At Destination 13:34,Transfer Patient 13:41,Call Closed Disclaimer v1.1 Copyright 2021 [employer] This EMS Care Summary contains data elements from the applicable legal record (which may be displayed differently). It is designed to provide pertinent information for the following purposes: continuity of care, clinical quality, and state data reporting. The complete legal record is available to ED staff and administrators of the receiving hospital in [employer]'s Patient Tracker. All data is provided "as is."
[~2021-10-25 13:26] MED LIST: ARICEPT10 M1 PO; CYMBALTA60 MG PO; DEPAKOTE ER250 MG PO; DEPAKOTE ER500 M1 PO; FISH OIL 1,0001 EAC9 PO; GLUCOSA-CHOND-1 EACH PO; LEVOCARNITI100 MG/ML PO; LISINOPRIL10 MG PO; LOPERAMIDE2 MG PO; MELATONIN5 M4 PO; METFORMIN HCL500 M3 PO; NORVASC 2.5 MG2.5 M1 PO; OLANZAPINE10 M1 IM; RISPERDAL 1 MG T1 MG PO; RISPERDAL0.5 MG PO; ROSUVASTATIN CA10 MG PO; TRADJENTA5 MG PO; TRICOR145 MG PO; VITAMIN D325 MC2 PO; ZYPREXA10 MG IM
[2021-10-25 13:28] VITALS: BP 119/53
[2021-10-25] MEDS ORDERED: CONSTULOSE10 GM/152 PO (13:29)
[2021-10-25] MEDS ORDERED: FUROSEMIDE 20 M20 M1 PO (13:29)
[2021-10-25] MEDS ORDERED: METFORMIN HCL500 MG PO (13:30)
[2021-10-25] MEDS ORDERED: RISPERIDONE1 MG PO (13:31)
[2021-10-25] MEDS ORDERED: DIVALPROEX SOD500 M1 PO (13:32)
[2021-10-25] MEDS ORDERED: PREDNISONE 10 M10 MG PO (13:32)
[2021-10-25] MEDS ORDERED: RISPERIDONE0.5 MG PO (13:33)
[2021-10-25] MEDS ORDERED: TRAZODONE HCL50 MG PO (13:34)
[2021-10-25 13:54] LABS: ABSOLUTE NEUTROPHILS 5.8 thou/uL (1.4-8.2); BASOPHILS 0.3 % (0.0-2.0); EOSINOPHILS 0.2 % (0.0-3.0); HEMATOCRIT 34.9 % (37.0-47.0); HEMOGLOBIN 11.6 gm/dL (12.0-15.0); LYMPHOCYTES 10.7 % (24.0-44.0); MCH 28.5 pg (26.0-34.0); MCHC 33.2 g/dL (28.0-37.0); MCV 86.1 fL (80.0-100.0); MONOCYTES 4.7 % (1.0-8.0); PLATELET COUNT 422 thou/uL (150-400); POLYS 84.1 % (36.0-66.0); RBC 4.06 mil/uL (4.20-5.00); WBC 6.9 thou/uL (4.0-11.0)
[2021-10-25 15:21] LABS: URINE BILIRUBIN NEGATIVE (Negative); URINE BLOOD NEGATIVE (Negative); URINE CLARITY CLEAR; URINE COLOR YELLOW; URINE GLUCOSE-RANDOM* NEGATIVE (Negative); URINE KETONES NEGATIVE (Negative); URINE LEUKOCYTES-REFLEX NEGATIVE (Negative); URINE NITRITE-REFLEX NEGATIVE (Negative); URINE PROTEIN (DIPSTICK) NEGATIVE (Negative); URINE UROBILINOGEN 0.2 E.U./dl (0.2-1.0)
[2021-10-25 15:27] LABS: CALCIUM 8.6 mg/dL (8.5-10.1); CREATININE 2.6 mg/dL (0.6-1.0); POTASSIUM 4.4 mmol/L (3.5-5.1)
[2021-10-25 15:33] LABS: ALBUMIN 2.9 g/dL (3.4-5.0); TOTAL BILIRUBIN 0.4 mg/dL (0.2-1.0); TOTAL PROTEIN 6.3 g/dL (6.4-8.2)
[2021-10-25 16:42] VITALS: BP 121/60
--- NOTE | 2021-10-25 17:38 | NUR ---
PTS GOLD NECKLACE, SHIRT AND PANTS SENT WITH PT DAUGHTER & PRIOR TO PT GOING TO THE FLOOR
[2021-10-25 18:31] VITALS: BP 137/61
[2021-10-25 18:43] VITALS: BP 154/93
--- NOTE | 2021-10-25 19:59 | NUR ---
PATIENT ADMIT TO UNIT AT 1835. AWAKE. ON RA 93%. WILL KEEP MONITOR.
[2021-10-26] VITALS (9 sets, daily range): BP systolic 114–148; BP diastolic 53–70
--- NOTE | 2021-10-26 07:50 | NUR ---
PT ARRIVED VIA CART. ADMISSION COMPLETED. CALLED [employer] TO GET PAIN MEDICATION ORDER. INTERVENTIONS SET AND CARE PLAN UPDATED. CONSULT PLACED TO DR. REILLY. PT ALSO PLACED ON NPO DUE TO POSSIBLE SURGERY. PHILIPPE IN DUE TO BEING IMMOBILE. SPOKE TO PT DAUGHTER "IVY" AND GAVE HER UPDATE. HER CONCERN IS THAT PT IS NOT ON ANY FLUIDS. DAUGHTER RELAYED THAT PT DOES NOT SPEAK. BED ALARM ON DUE TO FALL RISK.
--- NOTE | 2021-10-26 08:29 | EKG ---
[place] [address] [place] [address] ELECTROCARDIOGRAM REPORT Name: STEPHANY BERNAL Room #: 351-P ADM IN M.R.#: [id number] Admission: 10/25/21 Attend Phys: Tony Escobedo MD Discharge: Date of : 41 Report #: [id number] [facility] ED Test Date: 2021-10-25 Test Time: 15:09:54 Pat Name: STEPHANY BERNAL Department: Room: [facility] Gender: F Ciso: balbina : 1945 Requested By: Allie Hernandez Order Number: [id number] MD: Ran Blair Measurements Intervals [place] Rate: 78 P: 73 CA: 138 QRS: 34 QRSD: 98 T: 69 QT: 386 QTc: 440 Interpretive Statements Sinus rhythm No significant abnormality Compared to ECG 11/27/2019 21:07:05 No significant changes Electronically Signed On 10-26-2021 8:29:14 [employer] by Ran Blair [email or web address] <ELECTRONICALLY SIGNED> By: Ran Blair MD, [facility] 10/26/21 0829 [id number] Ran Blair MD, FACC /EPI
--- NOTE | 2021-10-26 15:22 | NUR ---
INITIAL ASSESSMENT: Received consult. ALEXANDRE reviewed chart and spoke with nursing and attending physician. Pt was admitted from [facility] after a fall. Pt with left hip fx. Pt to have surgery this afternoon around 1600. Pt had positive COVID test in the ER. Placed in Enhanced Isolation. Pt is afebrile and on room air. Pt has been vaccinated for COVID. Pt with hx of dementia. ALEXANDRE left voice message for pt's dtr, Vane, to provide update and discuss discharge plan. Pt may needs SNF placement upon discharge. ALEXANDRE was notified by [facility], that pt was on service with them prior to admission. Hospice services were revoked prior to admission to the hospital. [facility] to send hospice revocation ppwk to ALEXANDRE. ALEXANDRE updated UR. Therapy evals to be ordered after surgery. ALEXANDRE is following to assist as needed with discharge planning.
--- NOTE | 2021-10-26 19:26 | NUR ---
PATIENT BACK TO ROOM FROM OR AT 1835. OPEN EYE WITH VOICE. NONE VERBLE. VSS. WITH KEEP MONITOR,
[2021-10-27 03:29] VITALS: BP 130/65
[2021-10-27 05:17] LABS: HEMATOCRIT 29.1 % (37.0-47.0); MCH 29.5 pg (26.0-34.0); MCHC 34.2 g/dL (28.0-37.0); MCV 86.3 fL (80.0-100.0); RBC 3.38 mil/uL (4.20-5.00); RDW 14.2 % (10.5-14.5); WBC 9.7 thou/uL (4.0-11.0)
[2021-10-27 05:39] LABS: CREATININE 1.7 mg/dL (0.6-1.0); MAGNESIUM 2.2 mg/dL (1.8-2.4); POTASSIUM 4.2 mmol/L (3.5-5.1)
--- NOTE | 2021-10-27 06:24 | NUR ---
Pt. drowsy but easily arousable at beginning of shift. Opens eyes spontaneously but did not follow commands. She has been repositioned for comfort. Ice pack placed on left thigh. Dressing clean,dry and intact. Tolerating room air well. This am pt. is more awake and started answering questions and following commands. Daughter called last night for an update and she stated her mom has adavanced dementia and her mentation is at baseline. Bed alarm on for safety. Tylenol given as scheduled this am.
[2021-10-27 07:37] VITALS: BP 121/82
[2021-10-27] MEDS ORDERED: METFORMIN HCL500 MG PO (08:22)
[2021-10-27] MEDS ORDERED: RISPERDAL 1 MG T1 MG PO (10:24)
[2021-10-27] MEDS ORDERED: RISPERIDONE 00.25 MG PO (10:24)
[2021-10-27] MEDS ORDERED: RISPERDAL0.5 MG PO (10:24)
[2021-10-27] MEDS ORDERED: MYLANTA COAT-C355 ML PO (10:25)
[2021-10-27] MEDS ORDERED: MILK OF MA400 MG/5 M PO (10:26)
[2021-10-27] MEDS ORDERED: PREPARATION H1 EAC5 RECTAL (10:26)
[2021-10-27] MEDS ORDERED: TRIPLE ANTIBIO1 EAC1 TOP (10:27)
--- NOTE | 2021-10-27 12:24 | NUR ---
ALEXANDRE reviewed chart and spoke with nursing and attending physician. ALEXANDRE faxed SNF referral to [facility]. Notified [facility] liaison of new referral. ALEXANDRE received hospice revocation ppwk from [facility]. Info forwarded to UR. Awaiting input from [facility] at this time. ALEXANDRE is follwoing to assist as needed with discharge planning.
[2021-10-27 15:53] VITALS: BP 135/67
[2021-10-27 19:03] VITALS: BP 116/58
[2021-10-28 03:42] VITALS: BP 109/64
--- NOTE | 2021-10-28 04:17 | NUR ---
Pt. restless on bed at beginning of shift. She has been repositioned for comfort. She initially did not want to take her pills , came back later and she took it. Also drank soda and few bites of cheesecake. She slept some then woke up crying. When asked if she's in pain she said yes. Repositioned again then tramadol given. Ate few pieces of apple her family brought. She slept well since. Left hip dressing clean,dry and intact.
[2021-10-28 08:01] VITALS: BP 98/49
--- NOTE | 2021-10-28 09:15 | NUR ---
ALEXANDRE placed call to [facility] [place]. Spoke with nursing to request pt's COVID positive test results. Once ALEXANDRE receives this info, it will be faxed to [facility]. Pt is POD#2 left hip surgery. A[facility]ANDRE [facility]. ALEXANDRE is following to assist as needed with discharge planning.
[2021-10-28 15:06] VITALS: BP 122/51
--- NOTE | 2021-10-28 18:48 | NUR ---
RN ASSUMED PT'S CARE AT 0700AM, PT IS A&OX1 ( PERSON ), PT CAN FOLLOW SOME COMMANDS, PT IS CONFUSED, PT REFUSED TO TAKE SOME MEDICATIONS, PT HAS POOR EATING AND DRINKING EVEN WE FEED THE PT, PT IS CONTINUING IV FLUID. PT'S VS ARE STABLE AT DAY SHIFT.
--- NOTE | 2021-10-28 19:01 | NUR ---
PT'S L HIP SURGICAL DRESSING IS CDI, BUT PT REFUSED PAIN MEDICATIONS.
[2021-10-28 19:11] VITALS: BP 92/63
--- NOTE | 2021-10-28 22:35 | NUR ---
PT RESTING IN BED. CONFUSED YELLING OUT, INITIALLY RESISTIVE TO MEDS, L HIP DRESSING DRY AND INTACT. PHILIPPE TO DD. PALE SKIN TONE. BED ALARM ON.
[2021-10-29 03:34] VITALS: BP 136/74
[2021-10-29 06:59] VITALS: BP 155/78
[2021-10-29 08:00] VITALS: BP 155/78
[2021-10-29 13:00] VITALS: BP 133/67
--- NOTE | 2021-10-29 14:06 | NUR ---
ALEXANDRE reviewed chart and spoke with nursing and attending physician. Pt is slowly progressing towards goals for discharge to [facility]. ALEXANDRE contacted [facility], who states they do not have a bed today. Anticipate they will have a bed available tomorrow. [facility] requests discharge ppwk today if possible "to secure her a bed" for tomorrow. ALEXANDRE notified attending physician of request for dc ppwk. ALEXANDRE spoke with pt's dtr, Vane, via phone to provide update. Vane stated she had spoken with a physician earlier today. Pt with poor oral intake at this time. SW provided update regarding bed availability at [facility]. Pt's dtr is agreeable with discharge plan. ALEXANDRE is following to assist as needed with discharge planning.
[2021-10-29 15:30] VITALS: BP 152/69
--- NOTE | 2021-10-29 18:26 | NUR ---
ASSUMED PT CARE AT 1820 AND WAS A TRANSFER FROM . PT IS ALERT & ORIENTED X1 TO SELF AND CONFUSED. PT HAS DEMENTIA. PT HAS PHILIPPE CATH IN PLACE AND IS ON ROOM AIR. PER 3W NURSE LAST BM WAS 10/27. PT HAS IV SITE ON LAC RUNNING NS @100ML/HR. PT IS A FEEDER AND HAS POOR APPETITE. PER 3W NURSE GIVEN CRUSHED MEDS WITH APPLE SAUCE. PT FELL AND HAD L HIP FRACTURE. PT HAD SURGERY ON 10/26. PT DAUGHTER AT THE BEDSIDE. WILL ENDORSE NIGHT NURSE.
--- NOTE | 2021-10-29 18:49 | NUR ---
RN ASSUMED PT'S CARE AT 0700-1830PM, PT IS CONFUSED, PT CANNOT FOLLOW COMMANDS, PT IS ON ROOM AIR, PT'S VS ARE STABLE, RN HAS REPORTED DR ABOUT PT REFUSED MEDICATIONS AND REFUSED TO EAT AND DRINK, PT IS CONTNIUNG IV NS @100ML/HR, PT'S L HIP SURGICAL DRESSING IS CDI, PT TRANSFERED TO ROOM 435 AT 1830PM, PT'S DAUGHTER STAYS AT PT'S BEDSIDE.
[2021-10-29 19:24] VITALS: BP 152/83
--- NOTE | 2021-10-30 07:33 | NUR ---
RECEIVED CARE OF THIS PATIENT AT 1900. PATIENT ALERT AND ORIENTED X SELF ONLY. REFUSED MEDS ALL NIGHT EVEN WHEN MED WAS PAIN MED. WOULD NOT EVEN TAKE FOR HER DAUGHTER. WHEN ASKED IF SHE WAS IN PAIN SHE SAID YES. PAIN MED GIVEN IVP. ACCUCHECK WAS 100, NO COVERAGE NEEDED. PHILIPPE PATENT. IV PATENT WITH FLUIDS INFUSING. VERY RESTLESS. PAIM MED ONLY LASTED FOR A SHORT WHILE. SLEPT VERY LITTLE THIS SHIFT.
[2021-10-30 07:35] VITALS: BP 156/87
[2021-10-30] MEDS ORDERED: VITAMIN B-1100 M2 PO (10:33)
[2021-10-30] MEDS ORDERED: DIVALPROEX SOD250 M1 PO (10:33)
[2021-10-30] MEDS ORDERED: TRADJENTA5 MG PO (10:33)
[2021-10-30] MEDS ORDERED: VITAMIN C1000 MG PO (10:33)
[2021-10-30] MEDS ORDERED: ACETAMINOPHEN325 M1 PO (10:33)
[2021-10-30] MEDS ORDERED: CENTRUM SILVER1 EAC4 PO (10:33)
[2021-10-30] MEDS ORDERED: ENOXAPARIN30 MG/0.3 SUBQ (10:33)
[2021-10-30] MEDS ORDERED: ZINC SULFATE50 MG PO (10:33)
[2021-10-30] MEDS ORDERED: ATORVASTATIN CA10 MG PO (10:33)
[2021-10-30] MEDS ORDERED: PEPCID20 MG PO (10:33)
--- NOTE | 2021-10-30 10:48 | NUR ---
ALEXANDRE reviewed chart and spoke with attending physician. Pt was transferred to from . Pt is medically stable for discharge to [facility]. ALEXANDRE faxed discharge ppwk to [facility]. Notified [facility] liaison, who states she is waiting to hear back about the bed availability. ALEXANDRE is following to assist as needed with discharge planning.
[2021-10-30 14:54] VITALS: BP 156/87
--- NOTE | 2021-10-30 15:02 | NUR ---
CALLED REPORT TO [facility], TRANSPORT FOR 330
== END 2021-10-30 16:34 | DRG 480 ==
LOC: ER 13:26 → EROBS 16:59 → 3W 16:59 → 4S 10-29 17:59
PROVIDERS: Nurse Practitioner; ADMIT Internal Medicine; ATTEND Internal Medicine
PROC: 0QH734Z Insertion of Internal Fixation Device into Left Upper Femur, Percutaneous Approach (ICD-10-PCS; principal; 2021-10-27)
DX: S72.012A Unspecified intracapsular fracture of left femur, initial encounter for closed fracture (principal); U07.1 COVID-19; E43 Unspecified severe protein-calorie malnutrition; N17.9 Acute kidney failure, unspecified; Z68.1 Body mass index [BMI] 19.9 or less, adult; N18.9 Chronic kidney disease, unspecified; E78.5 Hyperlipidemia, unspecified; F32.9 Major depressive disorder, single episode, unspecified; I12.9 Hypertensive chronic kidney disease with stage 1 through stage 4 chronic kidney disease, or unspecified chronic kidney disease; E11.22 Type 2 diabetes mellitus with diabetic chronic kidney disease; F03.90 Unspecified dementia, unspecified severity, without behavioral disturbance, psychotic disturbance, mood disturbance, and anxiety; W18.39XA Other fall on same level, initial encounter; Y93.89 Activity, other specified; Y92.89 Other specified places as the place of occurrence of the external cause; Y99.8 Other external cause status; Z88.1 Allergy status to other antibiotic agents; Z88.8 Allergy status to other drugs, medicaments and biological substances
CPT/HCPCS: 10080; 10195; 10879; 50010; 50101; 50386; 51412; 51538; 52304; 53400; 53402; 56524; 56527; 56528; 57092; 62110; 62900; 70005